=== PATIENT | female | born 1995 ===

== ENCOUNTER → 2019-01-15 06:10 | Day surgery (SDC) | payer BC ==
--- NOTE | 2019-01-12 15:03 | HP ---
HISTORY AND PHYSICAL: DATE OF ADMISSION/SURGERY: 01/15/19 DATE OF OFFICE VISIT: 01/12/19 SURGEON: Nadia Barahona MD * (DICTATED BY ADAL BOX) PROCEDURE: Removal of hardware, right ankle. CHIEF COMPLAINT: Right ankle pain. HISTORY OF PRESENT ILLNESS: Ms. Dixon is a 23-year-old female who underwent an ORIF of her right ankle over a year ago. She has been having some pain in her ankle and has elected to have the hardware removed. PAST MEDICAL HISTORY: Asthma. PAST SURGICAL HISTORY: ORIF of the right ankle and tubes in her ears. CURRENT MEDICATIONS: 1. Fluoxetine 20 mg a day. 2. Ibuprofen as needed. 3. Tramadol 50 mg every 6 hours as needed. 4. Excedrin. 5. Albuterol sulfate nebulizer 3 times a day as needed. ALLERGIES: To AZITHROMYCIN. FAMILY HISTORY: Cancer. SOCIAL HISTORY: She is a 23-year-old female. She lives with her . She does not smoke or use drugs. REVIEW OF SYSTEMS: A complete 14-point review of systems was reviewed with the patient, was all negative or noncontributory. She denies history of DVT, PE, hepatitis, HIV, or anesthesia problems. PHYSICAL EXAMINATION GENERAL: She is well developed, well nourished, in no acute distress. VITAL SIGNS: She stands 64 inches tall, weighs 225 pounds, her blood pressure is 128/76, her heart rate is 108. HEENT: Normocephalic, atraumatic. NECK: Supple. No palpable lymph nodes. PULMONARY: The lungs are clear to auscultation bilaterally. CARDIO: Regular rate and rhythm. Strong S1 and S2. ABDOMEN: Soft, nontender, nondistended. NEUROLOGICAL: She is alert and oriented x3. MUSCULOSKELETAL: Right lower extremity: The skin is intact. There are no open wounds or abrasions. She walks with a slightly antalgic type gait favoring her right ankle. She has intact sensation over the right foot. She has 10 degrees of dorsiflexion, 45 degrees of plantar flexion, 5/5 lower extremity strength. She has a 2+ dorsalis pedis pulse. ASSESSMENT AND PLAN: Ms. Dixon is a 23-year-old female now over 1 year status post ORIF of the right ankle. She continues to have burning pain along the lateral ankle and dorsal foot. She has elected to proceed with removal of hardware of right ankle. The surgery is scheduled for 01/15/[address] Barahona discussed the risks and benefits of the surgery at today's visit and all of her questions were answered. She will follow up with Dr. Barahona 2 weeks after the surgery. ADAL BOX [id number]/[facility] #: [id number] [facility]ARE SYSTEMPaul
[~2019-01-15 06:10] MED LIST: Acetaminophen TAB* 325 MG PO PRN; Buffered Lidocaine 1% SYRIN* 1 ML/SYRINGE INTRADERM ONE; Dexamethasone IV* 4 MG/ML 1 ML (4 MG) ONE; DiMENhydriNATE IV* 50 MG/ML VIAL IV PUSH PRN; Ketorolac INJ* 30 MG/ML 1 ML VIAL ONE; Lactated Ringers 1000 ML Bag* 1,000 ML IV SCH; Lidocaine 2% PF * 5 ML VIAL ONE; Metoclopramide IV* 5 MG/ML 2 ML VIAL ONE; Midazolam* 1 MG/ML 2 ML VIAL (2 MG) ONE; Naloxone* 0.4 MG/ML 1 ML VIAL IV PRN; Ondansetron INJ* 2 MG/ML VIAL ONE; Propofol* 10 MG/ML 20 ML BTL ONE; ROPIVACAINE 5 MG/ML 30 ML BTL (0.5%) ONE; ceFAZolin 2 GM in NS PREMIX(*) 2 GM/100 ML BAG IVPB ONE; fentaNYL* 50 MCG/ML 2 ML VIAL (100 MCG VIAL) ONE; oxyCODONE TAB* 5 MG TAB PO PRN
[2019-01-15] MEDS: fentaNYL* 50 MCG/ML 2 ML VIAL (100 MCG VIAL) IV PRN ×4 (09:53→10:31)
[2019-01-15 10:47] VITALS: BP 114/75
--- NOTE | 2019-01-16 07:47 | OP ---
DATE OF OPERATION: 01/15/19 - [facility] DATE OF : 89 ATTENDING SURGEON: Nadia Barahona MD DELIVERY MOTORCYCLE DRIVER: ADAL Saravia. Ms. Mai did help throughout the procedure with preparation of the leg, wound retraction, and knee closure. ANESTHESIOLOGIST: Dr. Quintero. ANESTHESIA: General. 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 OPERATIVE PROCEDURE: Right ankle hardware removal with heterotopic bone excision. TOURNIQUET TIME: 21 minutes. ESTIMATED BLOOD LOSS: Less than 25 cc. COMPLICATIONS: None. SPECIMENS: Lateral fibular plate and screws sent to Pathology. BRIEF HISTORY/INDICATIONS: Ms. Dixon is a 23-year-old female who had a fall approximately 1 year ago with a right ankle bimalleolar fracture. She was treated with lateral fibular plate and syndesmotic screws. She later had the syndesmotic screws removed but continued to have right ankle pain laterally with paresthesias. She was convinced that the hardware was causing her pain and a CT scan showed some heterotopic ossification along the anterior fibula near the talofibular joint. The patient wished to proceed with removal of hardware and excision of the heterotopic bone. Informed consent was obtained from the patient. She understood the risks of surgery included but were not limited to bleeding, infection, damage to nearby structures, continued pain, need for further surgery, loss of motion, wound healing problem, re-fracture through a screw hole, stroke, heart attack, blood clot, and . She wished to proceed. INTRAOPERATIVE FINDINGS: Intraoperatively, the patient's plate and screw had no obvious abnormalities. No sign of infection. A small amount of heterotopic bone or a bone spur was removed from the anterior distal fibula. DESCRIPTION OF PROCEDURE: Ms. Dixon was identified in the preanesthesia unit. Her right lower extremity was marked as the correct operative site. Informed consent was signed and placed in the chart. The patient was taken to the operating room and placed under anesthesia without difficulty. A tourniquet was placed on the right thigh. Her right lower extremity was prepped and draped in the usual sterile fashion. Preop time-out was made to correctly identify the patient side and site. Appropriate perioperative antibiotics were given within 1 hour of incision. The patient's lateral fibular incision was opened using a 10-blade and tenotomies. The hardware was quickly identified. There were 4 screws distally and 4 screws proximally. These screws were easily removed without complications. An elevator was then used to remove the lateral fibular plate. The screw holes were carefully cleared off debris with a curette. The area was copiously irrigated with sterile saline. There was no evidence of purulence or abnormal-appearing bone. Using multiple C-arm views, confirmation of all hardware removed was achieved. There was a distal fibular heterotopic ossification or bone spur. Rongeur was used to carefully remove this. The incision was copiously irrigated with sterile saline. The 2-0 interrupted Vicryl were used to close the subcutaneous tissue. Skin was closed using running 3- 0 nylon suture. Sterile Xeroform, 4 x 4, and Webril were used to cover the incision. Bruce wrap was placed over this with a walking boot. The patient will be weightbearing as tolerated with crutches. She will protect the ankle over the next 2 to 3 weeks. She will have aspirin for DVT prophylaxis. She will follow up in the clinic in 2 weeks' time for recheck and suture removal. [id number]/[facility] #: [id number] RAJ
== END | disposition home or self-care (01) ==
LOC: OR 06:10
PROVIDERS: ATTEND Orthopaedic Surgery Adult Reconstructive Orthopaedic Surgery
DX: T84.84XA Pain due to internal orthopedic prosthetic devices, implants and grafts, initial encounter (principal); J45.909 Unspecified asthma, uncomplicated; M76.891 Other specified enthesopathies of right lower limb, excluding foot; M41.9 Scoliosis, unspecified
CPT/HCPCS: 76000; 81025; 88300; J0690; J1100; J1885; J2250; J2405; J2704; J2765; J2795; J3010